=== PATIENT | male | born 1960 | race Caucasian/White ===

== ENCOUNTER 2017-04-03 01:04 | Inpatient (IN) | payer OTHER ==
[~2017-04-03] VITALS: Ht 177.8 cm; Wt 113.4 kg
--- NOTE | 2017-04-03 10:22 | Admission Core Measures ---
Admission Meds I reviewed the following Meds: Current Medications Sig/Papo Start time Last Medication Dose Stop Time Status Admin Acetaminophen 975 MG ONCE 04/03 0000 NR (Tylenol) 04/03 2359 Cefazolin Sodium 2,000 MG ONCE 04/03 0000 NR (Kefzol-Ancef Inj) 04/03 2359 Oxycodone HCl 10 MG ONCE 04/03 0000 NR (Roxicodone) 04/03 2359 Acute Coronary Syndrome Inclusion Criteria ACS Diagnosis No Inpatient Core Measures LDL Reminder: If No, please order W/I first 24hr of stay Congestive Heart Failure Inclusion Criteria CHF Diagnosis No Cerebrovascular accident Inclusion Criteria CVA/TIA Diagnosis No Inpatient Core Measures Bedside Swallow Eval Reminder: If BSE failed, place ST order Antithrombotic Reminder: Order Antithrombotic Medication by end of day 2 Antithrombotic Reminder: Document Reason Antithrombotic Not ordered by end of day 2 AFIB/Flutter Reminder: If Present, add to problem list AFIB/Flutter Reminder: Order Anticoag Medication for pts with AFIB/Flutter Atherosclerosis Reminder: If Present, add to problem list LDL Reminder: If No, please order W/I first 24hr of stay PT Order Reminder: If No, please order Venous thromboembolism Inpatient Core Measures VTE [facility] Factors: [facility] prophylaxis d/t No contraindications No VTE Pharm Prophylaxis d/t No contraindications Inclusion Criteria - Per Current guidelines, there needs to be overlap - treatment for the first 5 days of Warfarin therapy. - Parenteral Anticoagulation (IV or SC) needs to be - given along with Warfarin therapy. VTE Diagnosis No VTE Type NONE VTE Confirmed by (Test) NONE Problem List As ranked by this Provider includes Assessment & Plan 1. Primary osteoarthritis of right hip
--- NOTE | 2017-04-03 11:16 | Surg Short-stay <48hrs Dis Sum ---
Visit Information Visit Dates Admission Date: 04/03/17 Discharge Date: 04/04/17 Surgical Short Stay DC Summary Admission Diagnosis: Right hip primary osteoarthritis Final Diagnosis: same, S/P Right Total hip arthroplasty Procedure(s): Right Total hip arthroplasty Summary/Significant Findings: Patient was admitted to the hospital for an elective total joint replacement. The procedure was tolerated well and patient was transferred to a general surgical floor. Diet was advanced and tolerated, and the patient voided spontaneously. The patient was evaluated and treated by physical therapy. At the time of hospital discharge, the vital signs were stable, neurovascular status was intact, and pain was controlled with the use of oral pain medications. Condition at Discharge: stable Discharge Disposition: home health services Discharge instructions provided to patient/family: Yes Post discharge follow-up plan: Follow up with Dr. Cronin in 6 weeks from date of surgery. Please call his office to arrange and/or confirm this appointment.
[2017-04-03] MEDS ORDERED: DILAUDID2 M1 PO (11:17)
[2017-04-03] MEDS ORDERED: COLACE100 M1 PO (11:17)
[2017-04-03] MEDS ORDERED: MIRALAX17 G1 PO (11:17)
[2017-04-03] MEDS ORDERED: MS CONTIN15 M2 PO (11:17)
[2017-04-03] MEDS ORDERED: ASPIRIN EC325 M2 PO (11:17)
--- NOTE | 2017-04-03 11:19 | Patient Discharge Instructions ---
Discharge Instructions General Discharge Information You were seen/treated for: Right hip primary osteoarthritis You had these procedures: Right Total hip arthroplasty Watch for these problems: Increasing pain despite the use of pain medication Increasing redness, warmth or swelling Drainage of any type from incision Inability to bear weight on operative leg Persistent nausea and vomiting Fever greater than 101.5 degrees Other wound care: Please keep wound clean and dry. No ointments or lotions of any type on or near incision at any time. No exceptions. Your dressing will be changed by your nurse on the second day after your surgery. Daily dry dressing changes are recommended each day thereafter. Do not soak your wound in a bath at any time until otherwise indicated by your surgeon. You may shower, please dry wound immediately after shower with a clean towel. Special Instructions: Aspirin: You are taking this medication to help prevent blood clot formation. Please take with food to protect your stomach lining. Please take as directed. Constipation: Pain medication can cause constipation. Dr. Cronin has recommended that you take Colace and miralax each day. You may discontinue this medication if you develop loose stool or diarrhea. If you wish to continue this medication, it is available over the counter. If you are unable to move your bowels after several days, if you are unable to pass gas and are developing bloating, nausea, or vomiting as a result, please contact your doctor. Diet Continue normal diet: Yes Recommended Diet: Regular Activity Activity Limited to: Weight bear as tolerated Additional ACTIVITY Info: Use assistive devices as needed Acute Coronary Syndrome Inclusion Criteria At DC or during hospital stay patient has or had the following: Discharge Core Measures Meds if any: Prescribed or Continued at Discharge Meds if any: NOT Prescribed or Continued at Discharge Congestive Heart Failure Inclusion Criteria At DC or during hospital stay patient has or had the following: Discharge Core Measures Meds if any: Prescribed or Continued at Discharge Meds if any: NOT Prescribed or Continued at Discharge Cerebrovascular accident Inclusion Criteria At DC or during hospital stay patient has or had the following: CVA/TIA Diagnosis No Discharge Core Measures Meds if any: Prescribed or Continued at Discharge Meds if any: NOT Prescribed or Continued at Discharge Venous thromboembolism Discharge Core Measures - Per Current guidelines, there needs to be overlap - treatment for the first 5 days of Warfarin therapy. - If discharged on Warfarin prior to 5 days of - overlap therapy, the patient will need to be - assessed for post discharge needs including - *Post discharge parental anticoagulation - *Warfarin and/or parental anticoagulation education - *Follow up date to check INR post discharge Meds if any: Prescribed or Continued at Discharge Note: Overlap Therapy is Warfarin and Anticoagulant Meds if any: NOT Prescribed or Continued at Discharge
--- NOTE | 2017-04-03 14:55 | RADIOLOGY REPORT ---
EXAMINATION: XR HIP, RIGHT CLINICAL INFORMATION: Right hip replacement. COMPARISON: None TECHNIQUE: Two views of the right hip. FINDINGS: Status post replacement of right hip. Orthopedic components in position. There is no fracture. IMPRESSION: Status post right hip replacement.
[2017-04-03 15:58] VITALS: BP 112/82
--- NOTE | 2017-04-03 16:07 | NUR ---
PT UP TO [facility] AT 1530. A/O X3. VSS. PT OOB W RW W PHY THERAPY. CLEARED BY PHY THERAPY TO GO HOME. PAIN ,ILD PER PT. MEDICATED PER EMAR. DSD TP R HIP C/D/I. DURACOLD TO R HIP . + CMS. IVF INFUSING PER EMAR. DINNER ORDERED. HAS NOT VOIDED POST SURGERY. ORTHO VITALS TAKEN LAYING DOWN BP 106/70 HR 106, SITTING 108/80 HR 110, STANDING 112/82 104. DENIES DIZZINESS UPON STANDING. CALL OCHOA USE INSTRUCTED WILL MONITOR
--- NOTE | 2017-04-03 16:35 | PN- Orthopedic ---
Subjective Subjective: Post op check: Patient received on general surgical floor without complaints. Pain is controlled. Denies chest pain, shortness of breath and difficulty breathing. Denies nausea and vomitting. Has been OOB to ambulate with PT, has cleared stairs. Has yet to eat. Has yet to void. Is interested in dc to home today. Objective Vital Signs and I&Os Vital Signs Date Time Temp Pulse Resp B/P B/P Pulse O2 O2 Flow FiO2 Mean Ox Delivery Rate 04/03 1558 97.8 104 18 112/82 93 Room Air Intake & Output 04/03 1600 04/03 0800 04/03 0000 04/02 1600 04/02 0800 04/02 0000 Intake Total Output Total Balance Patient 250 lb Weight Weight Reported by Patient Measurement Method Physical Exam: General: ALert and oriented x3, no acute distress Cardaic: RRR, s1s2 Pulm: CTA bilaterally ABD: Soft, non-tender, non-distended Extremities: Moves all extremities, distal sensation intact, skin warm and well perfused. DP pulses palpable bilaterally. Bilateral calves soft and non- tender. Surgical site: RIght hip. Dressing dry and intact, thigh compartment soft. Assessment/Plan Assessment/Plan This is a 56 year old male, POD 0, s/p R SADAF -ASA 325 bid for dvt ppx -OOB, WBAT -Regular diet, advance as tolerated -ABX x2 additional doses for prophylaxis while in house -Dispo planning: Home when tolerating po and void -WIll d/w Dr. Cronin Core Measures/Miscellaneous Venous Thromboembolism VTE Risk Factors: Age > 40, Surgery VTE Contraindications: No Contraindications VTE Diagnosis: No VTE Type: NONE VTE Confirmed by (Test): NONE Beta Kya Is Beta Kya a Home Med? No Antibiotics Is Patient on Antibiotics? Yes If Yes: prophylaxis
[2017-04-03 17:30] VITALS: BP 130/80
--- NOTE | 2017-04-03 18:04 | Operative Report ---
Operative/Inv Procedure Report Surgery Date: 04/03/17 Name of Procedure: Right total hip replacement Pre-Operative Diagnosis: Primary right hip DJD Post-Operative Diagnosis: Same Estimated Blood Loss: 250 Surgeon/Director Environmental: CASEY WORKMAN,ANA Chandler Anesthesia: block Operative/Procedure Note Note: Description of Procedure: The patient was taken to the operating room and positively identified. After induction of spinal anesthesia and administration of appropriate pre-operative antibiotics, the patient was positioned supine on the operating room table and all bony prominences were well padded. After performing a surgical timeout, the right lower extremity was prepped and draped in the usual sterile fashion. A direct anterior approach was made to the right hip. The incision was carried sharply through superficial soft tissues to the level of the fascia. Meticulous hemostasis was maintained with Bovie electocautery. The fascia over the tensor fascia cassandra muscle was opened sharply and the interval between the TFL and the sartorius was entered bluntly taking care to stay lateral to the lateral femoral cutaneous nerve. Retractors were placed around the femoral neck and the pericapsular fat was identified. The ascending branches of the lateral femoral circumflex vessels were identified and carefully coagulated. The pericapsular fat and anterior capsule were then resected. A napkin ring osteotomy was performed and the femoral head was removed without difficulty. Attention was then turned to the acetabulum. After appropriate placement of retractors, the acetabulum was exposed. Soft tissue was cleaned from the acetabular margin and notch. Overhanging osteophytes were removed and the teardrop was exposed. The acetabulum was then sequentially reamed to accept a 60 mm Madi Tritanium hemispherical solid back shell. This was impacted into place in the appropriate position and fitted with a 36 mm Trident X3 zero degree polyethylene insert. Attention was then turned to the femur. After performing the appropriate ligament releases, the proximal femur was exposed. It was then sequentially broached to accept a size 6 Alabaster Accolade 2 stem. This was trialed for leg length and stability. The trial component was removed and the final component was impacted into place. The trunnion was carefully cleaned and fit with a 36 mm, +0 Biolox delta ceramic femoral head. The hip was reduced and put through a full range of motion and found to be stable. The articular space was then irrigated with sterile saline. The periarticular soft tissues were infilitrated with Marcaine. The fascial layer was closed with interrupted #1 vicryl suture and the skin was re-approximated with interrupted 2 -0 vicryl. The skin was closed with a running 3-0 V-Lock suture. Steri-strips and a sterile dressing were applied. The patient was awakened and taken to the recovery room in satisfactory condition.
[2017-04-03 19:30] VITALS: BP 120/80
[2017-04-03 21:43] VITALS: BP 118/74
[2017-04-04 01:44] VITALS: BP 120/70
[2017-04-04 05:30] VITALS: BP 120/70
--- NOTE | 2017-04-04 08:16 | PN- Orthopedic ---
Subjective Subjective: Reports more pain today compared to yesterday. He reports feeling pretty good yesterday walking and doing stairs. No dizziness. No shortness of breath. No chest pains. Voided with some straining. Tolerating diet. No nausea. Anticipates going home later today. Objective Vital Signs and I&Os Vital Signs Date Time Temp Pulse Resp B/P B/P Pulse O2 O2 Flow FiO2 Mean Ox Delivery Rate 04/04 0530 97.7 78 20 120/70 95 Room Air 04/04 0144 97.6 89 20 120/70 94 Room Air 04/03 2143 98.3 88 20 118/74 94 Room Air 04/03 2128 Room Air 04/03 1930 97.6 93 20 120/80 94 Room Air 04/03 1730 97.4 89 20 130/80 98 Room Air 04/03 1558 97.8 104 18 112/82 93 Room Air Intake & Output 04/04 1600 04/04 0800 04/04 0000 04/03 1600 04/03 0800 04/03 0000 Intake Total 840 2525 Output Total 300 1500 Balance 540 1025 Intake, IV 600 525 Intake, Oral 240 2000 Output, Urine 300 1500 Patient 250 lb Weight Weight Reported by Patient Measurement Method Physical Exam: General - alert & oriented x 3. comfortable. no acute distress. Lungs - clear bilaterally. no w/r/r. Cardiac - s1s2. reg. Abdomen - soft. nontender. Extremities - warm bilaterally. right hip dressing c/d/i. no drains. no hematoma. nvi. calves soft and nontender b/l. Current Medications: Current Medications Sig/Papo Start time Last Medication Dose Route Stop Time Status Admin Acetaminophen 650 MG Q4P PRN 04/03 1545 AC PO Acetaminophen 0 .STK-MED ONE 04/03 1117 DC PO Acetaminophen 975 MG ONCE 04/03 0000 DC PO 04/03 2359 Aspirin 325 MG BID 04/030 AC 04/03 PO 2045 Cefazolin Sodium 2 GM IQ8 04/03 1600 DC 04/03 N/A 1 UNIT IV 04/04 0029 2335 Cefazolin Sodium 2,000 MG ONCE 04/03 0000 DC IV 04/03 2359 Dextrose/Sodium 1,000 ML .[id number] 04/03 1545 DC 04/04 Chloride IV 0417 Docusate Sodium 100 MG BID 04/03 2200 AC 04/03 PO 2045 Fentanyl Citrate 100 MCG .STK-MED ONE 04/03 1058 DC IM 04/03 1059 Hydromorphone HCl 2 MG Q4P PRN 04/03 1545 AC 04/03 PO 1606 Hydromorphone HCl 4 MG Q4P PRN 04/03 1545 AC 04/04 PO 0606 Hydromorphone HCl 2 MG .STK-MED ONE 04/03 1456 DC IM 04/03 1457 Hydromorphone HCl 2 MG .STK-MED ONE 04/03 1425 DC IM 04/03 1426 Ketorolac 30 MG Q6 04/04 1200 AC Tromethamine IV 04/09 0601 Ketorolac 30 MG Q6 04/04 1200 AC Tromethamine IV 04/09 0601 Ketorolac 15 MG Q8P PRN 04/03 1545 DC 04/04 Tromethamine IV 04/06 1531 0137 Meperidine HCl 50 MG .STK-MED ONE 04/03 1424 DC IM 04/03 1425 Midazolam HCl 4 MG .STK-MED ONE 04/03 1059 DC IM 04/03 1100 Morphine Sulfate 15 MG BID 04/04 0815 AC PO Morphine Sulfate 2 MG Q2P PRN 04/03 1545 AC IV Omeprazole 20 MG DAILY AC 04/04 0700 AC 04/04 PO 0604 Ondansetron HCl 4 MG Q6P PRN 04/03 1545 AC IV Oxycodone HCl 0 .STK-MED ONE 04/03 1118 DC PO Oxycodone HCl 10 MG ONCE 04/03 0000 DC PO 04/03 2359 Polyethylene Glycol 17 GM DAILY 04/04 1000 AC PO Promethazine HCl 12.5 MG Q6P PRN 04/03 1545 AC IV 04/10 1129 Tranexamic Acid 2,000 MG .STK-MED ONE 04/03 1057 DC IV 04/03 1058 Assessment/Plan Assessment/Plan This is a 56 year old male with no pmh is POD#1 s/p R THR tolerating diet. d/c iv fluids continue dilaudid / toradol. add ms contin bid and tylenol around the clock. asa 325 bid - dvt ppx continue PT, wbat completed stella-operative antibiotics f/u labs d/c planning, later today if pain controlled will d/w Core Measures/Miscellaneous Venous Thromboembolism VTE Risk Factors: Age > 40, Surgery VTE Contraindications: No Contraindications VTE Diagnosis: No VTE Type: NONE VTE Confirmed by (Test): NONE Beta Kya Is Beta Kya a Home Med? No Antibiotics Is Patient on Antibiotics? Yes If Yes: prophylaxis
[2017-04-04 09:18] LABS: ABSOLUTE BASOPHIL COUNT 0 /CUMM (0.0-0.2); ABSOLUTE EOSINOPHIL COUNT 0.1 /CUMM (0.0-0.7); ABSOLUTE GRANULOCYTE CT 6.7 /CUMM (1.4-6.5); ABSOLUTE LYMPH COUNT 0.8 /CUMM (1.2-3.4); ABSOLUTE MONOCYTE COUNT 0.9 /CUMM (0.10-0.60); BASOPHIL % 0.1 % (0.0-2.0); EOSINOPHIL % 1.3 % (0-5); GRANULOCYTE % 78.6 % (42.2-75.2); HEMATOCRIT 38.1 % (42-52); MEAN CORPUSCULAR HGB 32.4 PG (27.0-31.0); MEAN CORPUSCULAR HGB CONC 34.3 G/DL (33.0-37.0); MEAN CORPUSCULAR VOLUME 94.5 FL (80.0-94.0); MEAN PLATELET VOLUME 8.8 FL (7.4-10.4); PLATELET COUNT 163 /CUMM (130-400); RBC DISTRIBUTION WIDTH 14.7 % (11.5-14.5); RED BLOOD CELL CT 4.04 /CUMM (4.70-6.10); WHITE BLOOD CELL COUNT 8.5 /CUMM (4.8-10.8)
[2017-04-04 10:21] VITALS: BP 118/80
[2017-04-04 14:01] VITALS: BP 140/88
--- NOTE | 2017-04-04 21:57 | NUR ---
NURSING NOTE: BP REPORTED BY TECH TO BE 146/98 AND PULSE WAS 92, BP AND PULSE RECHECKED BY THIS SOCK EXAMINER AND FOUND TO BE 144/92 AND PULSE 90. PATIENT DENIES CHEST PAIN AND IS ASYMPTOMATIC AT THIS TIME. SURGICAL PA JULIO PAGED, AND CALLED AND FINDINGS REPORTED TO HIM. PER PA, RECHECK BP IN 1 HOUR AND CONTINUE TO MONITOR.
[2017-04-04 22:14] VITALS: BP 146/98
[2017-04-05 06:25] VITALS: BP 110/80
--- NOTE | 2017-04-05 07:40 | PN- Orthopedic ---
Subjective Subjective: No acute overnight events reported. Patient still c/o pain around incision but is able to weightbear without discomfort, states he notes the most discomfort when attempting a straight leg raise. Has worked with PT and was cleared. Denies chest pain, shortness of breath and difficulty breathing. Denies nausea and vomitting. Has voided without difficulty. Has yet to move bowels. Objective Vital Signs and I&Os Vital Signs Date Time Temp Pulse Resp B/P B/P Pulse O2 O2 Flow FiO2 Mean Ox Delivery Rate 04/05 0625 97.6 88 20 110/80 96 Room Air 04/04 2214 98.4 91 20 146/98 93 Room Air 04/04 1401 98.4 102 20 140/88 95 04/04 1021 98.9 84 20 118/80 95 Intake & Output 04/05 0804/05 0000 04/04 1600 04/04 0800 04/04 0000 04/03 1600 Intake Total 590 6049 570 9373 Output Total 049 784 4502 Balance 290 1280 984 0282 Intake, IV 230 100 600 525 Intake, Oral 360 865 701 8349 Output, Urine 705 369 2322 Patient 250 lb Weight Weight Reported by Patient Measurement Method Physical Exam: General: Alert and oriented x3, no acute distress Cardiac: RRR, s1s2 Pulm: CTA bilaterally Abdomen: Non-tender, obese, non-distended Extremities: Moves all extremities, distal sensation intact. Motor 5/5 in plantar and dorsi flexion, able to straight leg raise but notes discomfort. Palpable DP pulses bilaterally. Bilateral calves soft and non-tender. Surgical site: Right thigh, dressing dry and intact. Thigh compartment soft. No surrounding erythema. Assessment/Plan Assessment/Plan This is a 56 year old male, POD 2, s/p R THR. C/O continued pain stella- incisional but has been able to ambulate and motor function is improving. -Senna-S now for bm, if no bm, then add dulcolax pr -Continue current pain regimen -OOB, wbat -Dressing change today -ASA 325 bid for dvt ppx -Plan for discharge to home today with home health services -Eduardo Cronin Core Measures/Miscellaneous Venous Thromboembolism VTE Risk Factors: Age > 40, Surgery VTE Contraindications: No Contraindications VTE Diagnosis: No VTE Type: NONE VTE Confirmed by (Test): NONE Beta Kya Is Beta Kya a Home Med? No Antibiotics Is Patient on Antibiotics? Yes If Yes: prophylaxis
== END 2017-04-05 10:53 | disposition home health service (06) | DRG 470 ==
LOC: SDA 01:04 → ENRESERV 14:43 → ENTRNSPT 15:11 → EDTRNSPTSTS 15:26 → 2NA 15:33 → CMPTRNSPT 15:41 → ENPENDDIS 04-05 08:02 → 2NA 04-05 10:53
PROVIDERS: Physician Assistant Surgical; ADMIT Orthopaedic Surgery
PROC: 0SR90JZ Replacement of Right Hip Joint with Synthetic Substitute, Open Approach (ICD-10-PCS; principal; 2017-04-03)
DX: M16.11 Unilateral primary osteoarthritis, right hip (principal)
CPT/HCPCS: 2NASP; 36415; 73502-RT; 82436; 88304; 97110-GO; 97116-GO; 97161-GP; 97530-GO; J0131; J0690; J0735; J1885; J2405; J2550; J7042